=== PATIENT | male | born 1980 | race Caucasian/White ===

== ENCOUNTER 2017-07-07 15:08 | Emergency (ER) | payer OTHER ==
[~2017-07-07] VITALS: Ht 182.9 cm; Wt 84.1 kg
[2017-07-07 15:11] VITALS: TEMP 97.3
[2017-07-07] MEDS ORDERED: ZOLOFT 100MG100 MG PO (15:24)
[2017-07-07] MEDS ORDERED: COZAAR 50MG50 MG/TAB PO (15:25)
[2017-07-07 16:30] VITALS: BP 116/77; PULSE 62
[2017-07-07] MEDS ORDERED: CEPHALEXIN500 M1 PO (16:45)
[2017-07-07] MEDS ORDERED: NORCO 325 MG-51 TAB PO (16:46)
== END 2017-07-07 17:17 | disposition home or self-care (01) ==
LOC: COL.ER 15:08
DX: S61.211A Laceration without foreign body of left index finger without damage to nail, initial encounter (principal); W26.8XXA Contact with other sharp object(s), not elsewhere classified, initial encounter